=== PATIENT | male | born 1945 | race Two or more races ===

== ENCOUNTER 2017-06-27 06:34 | Day surgery (SDC) | payer MEDICARE, OTHER ==
[2017-06-27] MEDS: SOD CHLORIDE 0.45% 1,000 ML IV (07:00)
[2017-06-27 07:50] LABS: ADD MAN DIFF? NO
[2017-06-27 07:54] LABS: BASOPHILS % 0.5 % (0.0-2.0); EOSINOPHILS # 0.5 10^3/ul (0.0-0.5); EOSINOPHILS % 8.1 % (0.0-7.0); HEMATOCRIT 40.7 % (42.0-52.0); HEMOGLOBIN 13.6 g/dl (14.0-18.0); LYMPHOCYTES # 1.7 10^3/ul (0.8-2.9); LYMPHOCYTES % 26.9 % (15.0-51.0); MEAN CORPUSCULAR HEMOGLOBIN 29.8 pg (29.0-33.0); MEAN CORPUSCULAR HGB CONC 33.4 g/dl (32.0-37.0); MEAN CORPUSCULAR VOLUME 89.3 fl (82.0-101.0); MONOCYTE # 0.4 10^3/ul (0.3-0.9); MONOCYTES % 5.8 % (0.0-11.0); NEUTROPHIL # 3.6 10^3/ul (1.6-7.5); NEUTROPHILS % 58.4 % (39.0-77.0); PLATELET COUNT 136 10^3/UL (140-415); RED BLOOD COUNT 4.56 10^6/ul (4.70-6.10); RED CELL DISTRIBUTION WIDTH 12.7 % (11.5-14.5)
[2017-06-27 07:54] LABS: WHITE BLOOD COUNT 6.2 10^3/ul (4.8-10.8)
[2017-06-27 08:09] LABS: ALANINE AMINOTRANSFERASE 32 IU/L (13-69); ALBUMIN 4.3 g/dl (3.3-4.9); ALBUMIN/GLOBULIN RATIO 1.53; ALKALINE PHOSPHATASE 57 IU/L (42-121); ANION GAP 15 (8-16); ASPARTATE AMINO TRANSFERASE 28 IU/L (15-46); BILIRUBIN,INDIRECT 0.6 mg/dl (0-1.1); BILIRUBIN,TOTAL 0.6 mg/dl (0.2-1.3); CARBON DIOXIDE 25 mmol/L (21-31); CHLORIDE 107 mmol/L (97-110); CHOLESTEROL 261 mg/dl (100-200); GLUCOSE 142 mg/dl (70-220); HDL CHOLESTEROL 29 mg/dl (31-75); LDL CHOLESTEROL,CALCULATED 194 mg/dl; TOTAL PROTEIN 7.1 g/dl (6.1-8.1); TRIGLYCERIDES 189 mg/dl (0-149)
[2017-06-27 08:13] LABS: INR 0.96; PROTIME 12.9 Sec (11.9-14.9)
[2017-06-27 08:14] LABS: BLOOD UREA NITROGEN 21 mg/dl (7-20); PARTIAL THROMBOPLASTIN TIME 31.2 Sec (25.0-35.0); POTASSIUM 4.4 mmol/L (3.5-5.1); SODIUM 143 mmol/L (135-144)
[2017-06-27 08:15] LABS: CALCIUM 10.2 mg/dl (8.4-10.2); CREATININE 1.32 mg/dl (0.61-1.24)
[2017-06-27] MEDS ORDERED: IODIXANOL LOCM 100 ML BTL (08:18)
[2017-06-27] MEDS ORDERED: MIDAZOLAM 1 MG/ML 2 ML INJ (08:18)
[2017-06-27] MEDS ORDERED: HEPARIN 1000 UNITS/ML 10 ML INJ (08:18)
[2017-06-27] MEDS ORDERED: FENTAnyl 50 MCG/ML VIAL (08:18)
[2017-06-27] MEDS ORDERED: LIDOCAINE 1% (MDV) 20 ML INJ (08:18)
[2017-06-27] MEDS ORDERED: VERAPAMIL 5 MG INJ ×2 (08:18→09:07)
[2017-06-27] MEDS ORDERED: NITROGLYCERIN (IC) 100 MCG/ML INJ ×2 (08:19→09:43)
[2017-06-27] MEDS ORDERED: ASPIRIN 325 MG TAB (10:22)
[2017-06-27] MEDS ORDERED: CLOPIDOGREL 300 MG TAB (10:22)
[2017-06-27] MEDS: SOD CHLORIDE 0.9% 1,000 ML IV ×2 (10:40→21:24)
[2017-06-27] MEDS ORDERED: morphine 2 MG INJ IV (11:00)
[2017-06-27] MEDS ORDERED: ONDANSETRON 4 MG INJ IV (11:00)
[2017-06-27] MEDS ORDERED: AL HYDROX/MG HYDROX/SIMETH 30 ML CUP PO (11:00)
[2017-06-27] MEDS ORDERED: ACETAMINOPHEN 325 MG TAB PO (11:00)
[2017-06-27] MEDS ORDERED: DIAZEPAM 2 MG TAB PO (11:00)
[2017-06-27] MEDS: DIAZEPAM 5 MG TAB PO (11:40)
[2017-06-27] MEDS: DIPHENHYDRAMINE 50 MG CAP PO (11:40)
[2017-06-27] MEDS: FAMOTIDINE 20 MG TAB PO (11:40)
[2017-06-27] MEDS ORDERED: NITROGLYCERIN (SL) 0.4 MG TAB SL (21:30)
[2017-06-27] MEDS: OXYCODONE/ACETAMINOPHEN (5/325) TAB PO (21:54)
[2017-06-28 02:16] LABS: SODIUM,URINE RANDOM 163 mmol/L (30-90)
[2017-06-28 02:19] LABS: CREATININE,URINE RANDOM 52.76 mg/dl (20-370); PROTEIN/CREAT RATIO 0.13 RATIO
[2017-06-28 05:35] LABS: ADD MAN DIFF? NO
[2017-06-28 06:01] LABS: WHITE BLOOD COUNT 5.9 10^3/ul (4.8-10.8)
[2017-06-28 06:01] LABS: BASOPHILS % 0.5 % (0.0-2.0); EOSINOPHILS # 0.6 10^3/ul (0.0-0.5); EOSINOPHILS % 9.9 % (0.0-7.0); HEMATOCRIT 38.4 % (42.0-52.0); HEMOGLOBIN 13.2 g/dl (14.0-18.0); LYMPHOCYTES # 1.3 10^3/ul (0.8-2.9); LYMPHOCYTES % 21.8 % (15.0-51.0); MEAN CORPUSCULAR HEMOGLOBIN 30.3 pg (29.0-33.0); MEAN CORPUSCULAR HGB CONC 34.4 g/dl (32.0-37.0); MEAN CORPUSCULAR VOLUME 88.3 fl (82.0-101.0); MEAN PLATELET VOLUME 8.7 fl (7.4-10.4); MONOCYTE # 0.5 10^3/ul (0.3-0.9); MONOCYTES % 7.6 % (0.0-11.0); NEUTROPHIL # 3.6 10^3/ul (1.6-7.5); NEUTROPHILS % 59.9 % (39.0-77.0); PLATELET COUNT 121 10^3/UL (140-415); RED BLOOD COUNT 4.35 10^6/ul (4.70-6.10); RED CELL DISTRIBUTION WIDTH 12.8 % (11.5-14.5)
[2017-06-28 06:17] LABS: CHOL/HDL RATIO 10.5 RATIO; CREATINE KINASE 169 IU/L (23-200); HDL CHOLESTEROL 24 mg/dl (31-75); LDL CHOLESTEROL,CALCULATED 191 mg/dl; TRIGLYCERIDES 196 mg/dl (0-149)
[2017-06-28 06:17] LABS: CHOLESTEROL 254 mg/dl (100-200)
[2017-06-28 06:28] LABS: CK INDEX 2.6
[2017-06-28 06:29] LABS: CK-MB 4.42 ng/ml (0.0-2.4)
[2017-06-28 06:31] LABS: TROPONIN-I 0.121 ng/ml (0.00-0.12)
[2017-06-28 06:33] LABS: ALANINE AMINOTRANSFERASE 36 IU/L (13-69); ALBUMIN 3.6 g/dl (3.3-4.9); ALBUMIN/GLOBULIN RATIO 1.56; ALKALINE PHOSPHATASE 54 IU/L (42-121); ANION GAP 15 (8-16); ASPARTATE AMINO TRANSFERASE 23 IU/L (15-46); BILIRUBIN,INDIRECT 0.7 mg/dl (0-1.1); BILIRUBIN,TOTAL 0.7 mg/dl (0.2-1.3); BLOOD UREA NITROGEN 18 mg/dl (7-20); CALCIUM 9.8 mg/dl (8.4-10.2); CARBON DIOXIDE 25 mmol/L (21-31); CHLORIDE 104 mmol/L (97-110); CREATININE 1.21 mg/dl (0.61-1.24); GLUCOSE 124 mg/dl (70-220); POTASSIUM 4.1 mmol/L (3.5-5.1); SODIUM 140 mmol/L (135-144); TOTAL PROTEIN 5.9 g/dl (6.1-8.1)
[2017-06-28] MEDS: ASPIRIN (EC) 81 MG TAB PO (08:24)
[2017-06-28] MEDS: CLOPIDOGREL 75 MG TAB PO (08:24)
[2017-06-28] MEDS: ISOSORBIDE MONONITRATE(SR)60 MG TAB PO (08:25)
[2017-06-28] MEDS: DILTIAZEM (CD) 180 MG CAP PO (08:26)
[2017-06-28] MEDS ORDERED: RANITIDINE 150 MG TAB PO (21:00)
== END 2017-06-28 14:55 | disposition home or self-care (01) ==
LOC: SDS 06:34 → ICU 10:55
DX: I25.10 Atherosclerotic heart disease of native coronary artery without angina pectoris (principal); E11.9 Type 2 diabetes mellitus without complications; E78.5 Hyperlipidemia, unspecified; I48.91 Unspecified atrial fibrillation; R94.31 Abnormal electrocardiogram [ECG] [EKG]; I12.9 Hypertensive chronic kidney disease with stage 1 through stage 4 chronic kidney disease, or unspecified chronic kidney disease; N18.9 Chronic kidney disease, unspecified
CPT/HCPCS: 71045; 80053; 80061; 81003; 82550; 82553; 82570; 82962; 84300; 84484; 85025; 85610; 85730; 93005; 93458

== ENCOUNTER → 2018-09-10 | Outpatient (CLI) | payer MEDICARE, OTHER ==
[2018-09-10 15:56] LABS: BLOOD UREA NITROGEN 30 mg/dl (7-20)
[2018-09-10 15:56] LABS: CREATININE 1.29 mg/dl (0.61-1.24)
== END | disposition home or self-care (01) ==
LOC: LAB 15:04
DX: I72.9 Aneurysm of unspecified site (principal)
CPT/HCPCS: 82565; 84520

== ENCOUNTER → 2018-09-20 | Outpatient (CLI) | payer MEDICARE, OTHER ==
[2018-09-20] MEDS: SOD CHLORIDE 0.9% 100 ML (09:47)
[2018-09-20] MEDS: IODIXANOL LOCM 100 ML BTL (09:47)
== END | disposition home or self-care (01) ==
LOC: C/S 09:01
DX: I72.9 Aneurysm of unspecified site (principal)
CPT/HCPCS: 71260

== ENCOUNTER 2019-01-24 01:50 | Inpatient (IN) | payer MEDICARE, OTHER ==
[2019-01-24] MEDS: DILTIAZEM 25 MG INJ IV ×2 (02:09→10:31)
[2019-01-24 02:15] LABS: ADD MAN DIFF? NO
[2019-01-24 02:22] LABS: ANION GAP 11 (5-13); BASOPHILS % 0.5 % (0.0-2.0); BLOOD UREA NITROGEN 23 mg/dl (7-20); CALCIUM 10.3 mg/dl (8.4-10.2); CARBON DIOXIDE 26 mmol/L (21-31); CHLORIDE 104 mmol/L (97-110); CREATININE 1.82 mg/dl (0.61-1.24); EOSINOPHILS # 0.1 10^3/ul (0.0-0.5); GLUCOSE 168 mg/dl (70-220); HEMATOCRIT 45.7 % (42.0-52.0); HEMOGLOBIN 15.1 g/dl (14.0-18.0); LYMPHOCYTES # 2.1 10^3/ul (0.8-2.9); LYMPHOCYTES % 26.7 % (15.0-51.0); MEAN CORPUSCULAR HEMOGLOBIN 29.7 pg (29.0-33.0); MONOCYTE # 0.6 10^3/ul (0.3-0.9); MONOCYTES % 7.5 % (0.0-11.0); NEUTROPHILS % 63.8 % (39.0-77.0); PLATELET COUNT 126 10^3/UL (140-415); POTASSIUM 3.4 mmol/L (3.5-5.1); RED BLOOD COUNT 5.08 10^6/ul (4.70-6.10); RED CELL DISTRIBUTION WIDTH 13.1 % (11.5-14.5); SODIUM 141 mmol/L (135-144)
[2019-01-24 02:22] LABS: WHITE BLOOD COUNT 7.9 10^3/ul (4.8-10.8)
[2019-01-24 02:34] LABS: TROPONIN-I 0.027 ng/ml (0.000-0.120)
[2019-01-24 02:36] LABS: INR 1.41; PROTIME 17.4 Sec (11.9-14.9); PT RATIO 1.4
[2019-01-24 02:37] LABS: PARTIAL THROMBOPLASTIN TIME 28.8 Sec (23.0-35.0)
[2019-01-24] MEDS: SOD CHLORIDE 0.9% 500 ML IV (03:02)
[2019-01-24] MEDS ORDERED: ACETAMINOPHEN 325 MG TAB PO (04:00)
[2019-01-24] MEDS ORDERED: ONDANSETRON 4 MG INJ IV (04:00)
[2019-01-24 07:21] LABS: CREATINE KINASE 301 IU/L (23-200)
[2019-01-24 07:27] LABS: CK INDEX 3.3; TROPONIN-I 0.057 ng/ml (0.000-0.120)
[2019-01-24 07:32] LABS: CK-MB 9.98 ng/ml (0.0-2.4)
[2019-01-24] MEDS: morphine 2 MG INJ IV ×2 (07:48→21:29)
[2019-01-24] MEDS ORDERED: NITROGLYCERIN (SL) 0.4 MG TAB SL (08:00)
[2019-01-24 08:54] LABS: TROPONIN-I 0.062 ng/ml (0.000-0.120)
[2019-01-24] MEDS: DILTIAZEM 60 MG TAB PO ×2 (08:56→20:31)
[2019-01-24] MEDS: ENOXAPARIN 100 MG/ML SYG SC (09:00)
[2019-01-24] MEDS: ASPIRIN 81 MG TAB PO (09:00)
[2019-01-24] MEDS: POTASSIUM CHLORIDE (SR) 20 MEQ TAB PO (09:53)
[2019-01-24] MEDS ORDERED: GLUCOSE GEL 15 GRAM TUBE PO ×2 (10:30)
[2019-01-24] MEDS ORDERED: DEXTROSE 50% 50 ML SYRINGE IV ×2 (10:30)
[2019-01-24] MEDS ORDERED: GLUCOSE GEL 15 GRAM TUBE BUCCAL (10:30)
[2019-01-24] MEDS ORDERED: GLUCAGON 1 MG INJ IM (10:30)
[2019-01-24] MEDS: DIGOXIN 500 MCG INJ IV (10:33)
[2019-01-24] MEDS: POTASSIUM CHLORIDE 20 MEQ POWDER FOR ORAL SOLN PO (10:40)
[2019-01-24] MEDS: CLOPIDOGREL 75 MG TAB PO (11:16)
[2019-01-24] MEDS: ISOSORBIDE MONONITRATE(SR)60 MG TAB PO (11:17)
[2019-01-24 11:41] LABS: ADD UMIC NO; UR ASCORBIC ACID NEGATIVE (NEGATIVE); UR BILIRUBIN (Dip) NEGATIVE (NEGATIVE); UR BLOOD (Dip) NEGATIVE (NEGATIVE); UR CLARITY CLEAR (CLEAR); UR COLOR YELLOW (YELLOW); UR GLUCOSE (Dip) NEGATIVE (NEGATIVE); UR KETONES (Dip) NEGATIVE (NEGATIVE); UR LEUKOCYTE ESTERASE (Dip) NEGATIVE Leu/ul (NEGATIVE); UR NITRITE (Dip) NEGATIVE (NEGATIVE); UR SPECIFIC GRAVITY (Dip) 1.018 (1.003-1.030); UR TOTAL PROTEIN (Dip) NEGATIVE (NEGATIVE); UR UROBILINOGEN (Dip) NEGATIVE (NEGATIVE)
[2019-01-24] MEDS: INSULIN ASPART [NOVOLOG] 3 ML PEN SC ×3 (12:17→20:41)
[2019-01-24 15:39] LABS: TROPONIN-I 0.059 ng/ml (0.000-0.120)
[2019-01-24] MEDS: ATORVASTATIN 40 MG TAB PO (20:31)
[2019-01-24] MEDS: ENOXAPARIN 80 MG/0.8 ML SYG SC (20:36)
[2019-01-24 21:08] LABS: CREATINE KINASE 227 IU/L (23-200)
[2019-01-24 21:20] LABS: CK INDEX 3.3; TROPONIN-I 0.056 ng/ml (0.000-0.120)
[2019-01-24 21:21] LABS: CK-MB 7.53 ng/ml (0.0-2.4)
[2019-01-24] MEDS: ZOLPIDEM 5 MG TAB PO (22:13)
[2019-01-25] MEDS: SOD CHLORIDE 0.9% 500 ML IV (01:11)
[2019-01-25] MEDS: PANTOPRAZOLE (EC) 40 MG TAB PO (05:37)
[2019-01-25] MEDS: INSULIN ASPART [NOVOLOG] 3 ML PEN SC ×4 (07:54→20:09)
[2019-01-25] MEDS: ENOXAPARIN 80 MG/0.8 ML SYG SC ×2 (08:23→20:33)
[2019-01-25] MEDS: DILTIAZEM 60 MG TAB PO ×2 (08:27→20:07)
[2019-01-25] MEDS: CLOPIDOGREL 75 MG TAB PO (08:28)
[2019-01-25] MEDS: ISOSORBIDE MONONITRATE(SR)60 MG TAB PO (08:28)
[2019-01-25] MEDS: PREGABALIN 75 MG CAP PO (08:28)
[2019-01-25] MEDS: TAMSULOSIN (SR) 0.4 MG CAP PO (08:29)
[2019-01-25] MEDS: LINAGLIPTIN 5 MG TABLET PO (08:29)
[2019-01-25] MEDS: glyBURIDE 5 MG TAB PO (09:19)
[2019-01-25 10:29] LABS: ADD MAN DIFF? NO
[2019-01-25] MEDS ORDERED: BISACODYL 10 MG SUPP PR (10:30)
[2019-01-25 10:37] LABS: WHITE BLOOD COUNT 6.1 10^3/ul (4.8-10.8)
[2019-01-25 10:37] LABS: BASOPHILS % 0.5 % (0.0-2.0); EOSINOPHILS # 0.1 10^3/ul (0.0-0.5); HEMATOCRIT 45.4 % (42.0-52.0); LYMPHOCYTES # 1.5 10^3/ul (0.8-2.9); LYMPHOCYTES % 25.3 % (15.0-51.0); MEAN CORPUSCULAR HEMOGLOBIN 29.4 pg (29.0-33.0); MEAN CORPUSCULAR VOLUME 88.8 fl (82.0-101.0); MEAN PLATELET VOLUME 9.6 fl (7.4-10.4); MONOCYTE # 0.4 10^3/ul (0.3-0.9); MONOCYTES % 5.9 % (0.0-11.0); NEUTROPHIL # 4.1 10^3/ul (1.6-7.5); NEUTROPHILS % 66.8 % (39.0-77.0); PLATELET COUNT 122 10^3/UL (140-415); RED BLOOD COUNT 5.11 10^6/ul (4.70-6.10); RED CELL DISTRIBUTION WIDTH 13.2 % (11.5-14.5)
[2019-01-25 10:47] LABS: HEMOGLOBIN A1C 6.5 % (0-5.9)
[2019-01-25 10:54] LABS: IRON 98 ug/dl (35-150)
[2019-01-25 11:00] LABS: ANION GAP 8 (5-13); BLOOD UREA NITROGEN 20 mg/dl (7-20); CALCIUM 9.5 mg/dl (8.4-10.2); CARBON DIOXIDE 24 mmol/L (21-31); CHLORIDE 104 mmol/L (97-110); CREATININE 1.46 mg/dl (0.61-1.24); GLUCOSE 182 mg/dl (70-220); SODIUM 136 mmol/L (135-144); URIC ACID 8.4 mg/dl (3.1-7.9)
[2019-01-25 11:03] LABS: % IRON SATURATION 36 % SAT (22-52); TOTAL IRON BINDING CAPACITY 269 ug/dl (241-421)
[2019-01-25] MEDS: SENNA TAB PO (11:10)
[2019-01-25] MEDS ORDERED: morphine 2 MG INJ IV (11:30)
[2019-01-25] MEDS: ATORVASTATIN 40 MG TAB PO (20:06)
[2019-01-25] MEDS: DOCUSATE SODIUM 100 MG CAP PO (20:53)
[2019-01-26] MEDS: PANTOPRAZOLE (EC) 40 MG TAB PO (05:45)
[2019-01-26] MEDS: INSULIN ASPART [NOVOLOG] 3 ML PEN SC ×4 (07:55→20:45)
[2019-01-26] MEDS: DOCUSATE SODIUM 100 MG CAP PO ×2 (08:05→20:43)
[2019-01-26] MEDS: CLOPIDOGREL 75 MG TAB PO (08:05)
[2019-01-26] MEDS: TAMSULOSIN (SR) 0.4 MG CAP PO (08:05)
[2019-01-26] MEDS: glyBURIDE 5 MG TAB PO (08:05)
[2019-01-26] MEDS: PREGABALIN 75 MG CAP PO (08:06)
[2019-01-26] MEDS: LINAGLIPTIN 5 MG TABLET PO (08:06)
[2019-01-26] MEDS: ISOSORBIDE MONONITRATE(SR)60 MG TAB PO (08:07)
[2019-01-26] MEDS: DILTIAZEM 60 MG TAB PO ×2 (08:07→20:42)
[2019-01-26] MEDS: ENOXAPARIN 80 MG/0.8 ML SYG SC ×2 (08:10→20:45)
[2019-01-26 10:43] LABS: ADD MAN DIFF? NO
[2019-01-26 10:45] LABS: WHITE BLOOD COUNT 6.7 10^3/ul (4.8-10.8)
[2019-01-26 10:45] LABS: BASOPHILS % 0.3 % (0.0-2.0); EOSINOPHILS % 0.6 % (0.0-7.0); HEMATOCRIT 44.7 % (42.0-52.0); HEMOGLOBIN 14.7 g/dl (14.0-18.0); LYMPHOCYTES # 1.5 10^3/ul (0.8-2.9); LYMPHOCYTES % 22.7 % (15.0-51.0); MEAN CORPUSCULAR HEMOGLOBIN 29.5 pg (29.0-33.0); MEAN CORPUSCULAR HGB CONC 32.9 g/dl (32.0-37.0); MEAN CORPUSCULAR VOLUME 89.8 fl (82.0-101.0); MEAN PLATELET VOLUME 9.5 fl (7.4-10.4); MONOCYTE # 0.4 10^3/ul (0.3-0.9); MONOCYTES % 5.7 % (0.0-11.0); NEUTROPHIL # 4.7 10^3/ul (1.6-7.5); NEUTROPHILS % 70.6 % (39.0-77.0); POSITIVE DIFF @See below; RED BLOOD COUNT 4.98 10^6/ul (4.70-6.10); RED CELL DISTRIBUTION WIDTH 13.1 % (11.5-14.5)
[2019-01-26 10:54] LABS: PLATELET COUNT 119 10^3/UL (140-415)
[2019-01-26 11:04] LABS: ANION GAP 8 (5-13); BLOOD UREA NITROGEN 20 mg/dl (7-20); CALCIUM 9.6 mg/dl (8.4-10.2); CARBON DIOXIDE 24 mmol/L (21-31); CHLORIDE 104 mmol/L (97-110); CREATININE 1.48 mg/dl (0.61-1.24); GLUCOSE 175 mg/dl (70-220); SODIUM 136 mmol/L (135-144)
[2019-01-26] MEDS: ATORVASTATIN 40 MG TAB PO (20:42)
[2019-01-27] MEDS: PANTOPRAZOLE (EC) 40 MG TAB PO (05:53)
[2019-01-27 06:42] LABS: ADD MAN DIFF? NO
[2019-01-27 06:51] LABS: ABNORMAL IP MESSAGE 1; BASOPHILS % 0.4 % (0.0-2.0); EOSINOPHILS # 0.1 10^3/ul (0.0-0.5); EOSINOPHILS % 1.4 % (0.0-7.0); HEMATOCRIT 41.6 % (42.0-52.0); HEMOGLOBIN 13.7 g/dl (14.0-18.0); LYMPHOCYTES # 1.4 10^3/ul (0.8-2.9); LYMPHOCYTES % 26.9 % (15.0-51.0); MEAN CORPUSCULAR HEMOGLOBIN 29.5 pg (29.0-33.0); MEAN CORPUSCULAR HGB CONC 32.9 g/dl (32.0-37.0); MEAN CORPUSCULAR VOLUME 89.7 fl (82.0-101.0); MEAN PLATELET VOLUME 9.4 fl (7.4-10.4); MONOCYTE # 0.4 10^3/ul (0.3-0.9); MONOCYTES % 8.3 % (0.0-11.0); NEUTROPHIL # 3.2 10^3/ul (1.6-7.5); NEUTROPHILS % 62.6 % (39.0-77.0); PLATELET COUNT 94 10^3/UL (140-415); POSITIVE DIFF @See below; RED BLOOD COUNT 4.64 10^6/ul (4.70-6.10); RED CELL DISTRIBUTION WIDTH 13.2 % (11.5-14.5)
[2019-01-27 06:51] LABS: WHITE BLOOD COUNT 5.1 10^3/ul (4.8-10.8)
[2019-01-27 07:22] LABS: ANION GAP 8 (5-13); BLOOD UREA NITROGEN 17 mg/dl (7-20); CALCIUM 9.3 mg/dl (8.4-10.2); CARBON DIOXIDE 27 mmol/L (21-31); CHLORIDE 104 mmol/L (97-110); CREATININE 1.37 mg/dl (0.61-1.24); GLUCOSE 119 mg/dl (70-220); POTASSIUM 3.6 mmol/L (3.5-5.1); SODIUM 139 mmol/L (135-144)
[2019-01-27] MEDS: INSULIN ASPART [NOVOLOG] 3 ML PEN SC ×4 (07:55→20:17)
[2019-01-27] MEDS: TAMSULOSIN (SR) 0.4 MG CAP PO (08:33)
[2019-01-27] MEDS: DOCUSATE SODIUM 100 MG CAP PO ×2 (08:34→20:17)
[2019-01-27] MEDS: PREGABALIN 75 MG CAP PO (08:34)
[2019-01-27] MEDS: LINAGLIPTIN 5 MG TABLET PO (08:34)
[2019-01-27] MEDS: ISOSORBIDE MONONITRATE(SR)60 MG TAB PO (08:34)
[2019-01-27] MEDS: CLOPIDOGREL 75 MG TAB PO (08:34)
[2019-01-27] MEDS: glyBURIDE 5 MG TAB PO (08:34)
[2019-01-27] MEDS: ENOXAPARIN 80 MG/0.8 ML SYG SC ×2 (08:35→20:42)
[2019-01-27] MEDS: DILTIAZEM 60 MG TAB PO (08:35)
[2019-01-27] MEDS ORDERED: METOPROLOL 5 MG INJ IV (12:00)
[2019-01-27] MEDS: ATORVASTATIN 40 MG TAB PO (20:17)
[2019-01-27] MEDS: DILTIAZEM (CD) 180 MG CAP PO (20:18)
[2019-01-27] MEDS: ZOLPIDEM 5 MG TAB PO (22:50)
[2019-01-28] MEDS ORDERED: AL HYDROX/MG HYDROX/SIMETH 30 ML CUP PO (02:00)
[2019-01-28] MEDS: PANTOPRAZOLE (EC) 40 MG TAB PO (05:52)
[2019-01-28 06:34] LABS: ADD MAN DIFF? NO
[2019-01-28 06:58] LABS: WHITE BLOOD COUNT 5.3 10^3/ul (4.8-10.8)
[2019-01-28 06:58] LABS: ABNORMAL IP MESSAGE 1; BASOPHILS % 0.4 % (0.0-2.0); EOSINOPHILS # 0.1 10^3/ul (0.0-0.5); EOSINOPHILS % 1.5 % (0.0-7.0); HEMATOCRIT 39.6 % (42.0-52.0); HEMOGLOBIN 12.9 g/dl (14.0-18.0); LYMPHOCYTES # 1.8 10^3/ul (0.8-2.9); LYMPHOCYTES % 33.1 % (15.0-51.0); MEAN CORPUSCULAR HEMOGLOBIN 29.4 pg (29.0-33.0); MEAN CORPUSCULAR HGB CONC 32.6 g/dl (32.0-37.0); MEAN CORPUSCULAR VOLUME 90.2 fl (82.0-101.0); MEAN PLATELET VOLUME 9.5 fl (7.4-10.4); MONOCYTE # 0.4 10^3/ul (0.3-0.9); MONOCYTES % 7.3 % (0.0-11.0); NEUTROPHILS % 57.3 % (39.0-77.0); PLATELET COUNT 87 10^3/UL (140-415); POSITIVE DIFF @See below; RED BLOOD COUNT 4.39 10^6/ul (4.70-6.10); RED CELL DISTRIBUTION WIDTH 13.4 % (11.5-14.5)
[2019-01-28] MEDS: INSULIN ASPART [NOVOLOG] 3 ML PEN SC ×4 (07:51→20:36)
[2019-01-28] MEDS: LINAGLIPTIN 5 MG TABLET PO (08:08)
[2019-01-28] MEDS: TAMSULOSIN (SR) 0.4 MG CAP PO (08:09)
[2019-01-28] MEDS: glyBURIDE 5 MG TAB PO (08:09)
[2019-01-28] MEDS: ISOSORBIDE MONONITRATE(SR)60 MG TAB PO (08:09)
[2019-01-28] MEDS: PREGABALIN 75 MG CAP PO (08:09)
[2019-01-28] MEDS: CLOPIDOGREL 75 MG TAB PO (08:10)
[2019-01-28] MEDS: DILTIAZEM (CD) 180 MG CAP PO ×2 (08:10→20:37)
[2019-01-28] MEDS: DOCUSATE SODIUM 100 MG CAP PO ×2 (08:10→20:36)
[2019-01-28] MEDS: ENOXAPARIN 80 MG/0.8 ML SYG SC (08:15)
[2019-01-28] MEDS: APIXABAN 5 MG TABLET PO ×2 (10:32→20:36)
[2019-01-28] MEDS: ATORVASTATIN 40 MG TAB PO (20:36)
[2019-01-28] MEDS ORDERED: APIXABAN 5 MG TABLET PO (21:00)
[2019-01-29] MEDS: PANTOPRAZOLE (EC) 40 MG TAB PO (05:58)
[2019-01-29 06:47] LABS: ADD MAN DIFF? NO
[2019-01-29 06:50] LABS: ABNORMAL IP MESSAGE 1; BASOPHILS % 0.6 % (0.0-2.0); EOSINOPHILS # 0.1 10^3/ul (0.0-0.5); EOSINOPHILS % 1.7 % (0.0-7.0); HEMATOCRIT 40.7 % (42.0-52.0); HEMOGLOBIN 13.1 g/dl (14.0-18.0); LYMPHOCYTES # 1.7 10^3/ul (0.8-2.9); LYMPHOCYTES % 32.2 % (15.0-51.0); MEAN CORPUSCULAR HGB CONC 32.2 g/dl (32.0-37.0); MEAN PLATELET VOLUME 9.5 fl (7.4-10.4); MONOCYTE # 0.4 10^3/ul (0.3-0.9); MONOCYTES % 7.4 % (0.0-11.0); NEUTROPHILS % 57.5 % (39.0-77.0); PLATELET COUNT 95 10^3/UL (140-415); POSITIVE DIFF @See below; RED BLOOD COUNT 4.52 10^6/ul (4.70-6.10); RED CELL DISTRIBUTION WIDTH 13.4 % (11.5-14.5)
[2019-01-29 06:50] LABS: WHITE BLOOD COUNT 5.2 10^3/ul (4.8-10.8)
[2019-01-29] MEDS: INSULIN ASPART [NOVOLOG] 3 ML PEN SC ×4 (07:55→21:00)
[2019-01-29] MEDS: DILTIAZEM (CD) 180 MG CAP PO (09:00)
[2019-01-29] MEDS: glyBURIDE 5 MG TAB PO (09:50)
[2019-01-29] MEDS: APIXABAN 5 MG TABLET PO ×2 (09:50→21:20)
[2019-01-29] MEDS: TAMSULOSIN (SR) 0.4 MG CAP PO (09:50)
[2019-01-29] MEDS: DOCUSATE SODIUM 100 MG CAP PO ×2 (09:50→21:19)
[2019-01-29] MEDS: CLOPIDOGREL 75 MG TAB PO (09:51)
[2019-01-29] MEDS: PREGABALIN 75 MG CAP PO (09:55)
[2019-01-29] MEDS: LINAGLIPTIN 5 MG TABLET PO (09:56)
[2019-01-29] MEDS: SOD CHLORIDE 0.9% 500 ML IV (14:28)
[2019-01-29] MEDS: DIGOXIN 500 MCG INJ IV (14:54)
[2019-01-29] MEDS: AMIODARONE 150MG/D5W BOLUS 100 ML IV (16:23)
[2019-01-29] MEDS: AMIODARONE 900 MG in DEXTROSE 5% 482 ML IV (16:43)
[2019-01-29] MEDS: ATORVASTATIN 40 MG TAB PO (21:18)
[2019-01-29] MEDS: DILTIAZEM (CD) 120 MG CAP PO (21:19)
[2019-01-30] MEDS: HYDROCODONE/APAP (5/325) TAB PO (00:42)
[2019-01-30] MEDS: PANTOPRAZOLE (EC) 40 MG TAB PO (05:58)
[2019-01-30] MEDS: INSULIN ASPART [NOVOLOG] 3 ML PEN SC ×2 (07:55→11:50)
[2019-01-30 09:13] LABS: ADD MAN DIFF? NO
[2019-01-30 09:26] LABS: WHITE BLOOD COUNT 5.1 10^3/ul (4.8-10.8)
[2019-01-30 09:26] LABS: ABNORMAL IP MESSAGE 1; BASOPHILS % 0.4 % (0.0-2.0); EOSINOPHILS # 0.1 10^3/ul (0.0-0.5); EOSINOPHILS % 1.4 % (0.0-7.0); HEMATOCRIT 40.3 % (42.0-52.0); HEMOGLOBIN 12.9 g/dl (14.0-18.0); LYMPHOCYTES # 1.5 10^3/ul (0.8-2.9); LYMPHOCYTES % 30.1 % (15.0-51.0); MEAN CORPUSCULAR VOLUME 90.6 fl (82.0-101.0); MEAN PLATELET VOLUME 9.7 fl (7.4-10.4); MONOCYTE # 0.4 10^3/ul (0.3-0.9); MONOCYTES % 7.7 % (0.0-11.0); NEUTROPHIL # 3.1 10^3/ul (1.6-7.5); PLATELET COUNT 91 10^3/UL (140-415); POSITIVE DIFF @See below; RED BLOOD COUNT 4.45 10^6/ul (4.70-6.10); RED CELL DISTRIBUTION WIDTH 13.4 % (11.5-14.5)
[2019-01-30 09:39] LABS: ANION GAP 4 (5-13); BLOOD UREA NITROGEN 12 mg/dl (7-20); CALCIUM 9.3 mg/dl (8.4-10.2); CARBON DIOXIDE 27 mmol/L (21-31); CHLORIDE 108 mmol/L (97-110); CREATININE 1.34 mg/dl (0.61-1.24); GLUCOSE 101 mg/dl (70-220); SODIUM 139 mmol/L (135-144)
[2019-01-30 09:43] LABS: MAGNESIUM 1.6 mg/dl (1.7-2.5)
[2019-01-30 09:43] LABS: PHOSPHORUS 3.5 mg/dl (2.5-4.9)
[2019-01-30] MEDS: LINAGLIPTIN 5 MG TABLET PO (10:08)
[2019-01-30] MEDS: TAMSULOSIN (SR) 0.4 MG CAP PO (10:08)
[2019-01-30] MEDS: APIXABAN 5 MG TABLET PO (10:08)
[2019-01-30] MEDS: CLOPIDOGREL 75 MG TAB PO (10:09)
[2019-01-30] MEDS: PREGABALIN 75 MG CAP PO (10:09)
[2019-01-30] MEDS: DILTIAZEM (CD) 120 MG CAP PO (10:10)
[2019-01-30] MEDS: DOCUSATE SODIUM 100 MG CAP PO (10:10)
[2019-01-30] MEDS: glyBURIDE 5 MG TAB PO (10:11)
[2019-01-30] MEDS: MAGNESIUM SULFATE 2 GM/50 ML 50 ML IVPB (11:48)
[2019-01-30] MEDS ORDERED: AMIODARONE 200 MG TAB PO (21:00)
== END 2019-01-30 16:27 | disposition home or self-care (01) | DRG 308 ==
LOC: E/R 01:50 → TEL 03:33
DX: I48.91 Unspecified atrial fibrillation (principal); I50.33 Acute on chronic diastolic (congestive) heart failure; N17.9 Acute kidney failure, unspecified; D68.69 Other thrombophilia; I13.0 Hypertensive heart and chronic kidney disease with heart failure and stage 1 through stage 4 chronic kidney disease, or unspecified chronic kidney disease; I20.9 Angina pectoris, unspecified; Z95.5 Presence of coronary angioplasty implant and graft; I12.9 Hypertensive chronic kidney disease with stage 1 through stage 4 chronic kidney disease, or unspecified chronic kidney disease; E11.22 Type 2 diabetes mellitus with diabetic chronic kidney disease; N18.9 Chronic kidney disease, unspecified; Z79.02 Long term (current) use of antithrombotics/antiplatelets; N40.0 Benign prostatic hyperplasia without lower urinary tract symptoms; D69.6 Thrombocytopenia, unspecified; R06.02 Shortness of breath; E66.3 Overweight; Z68.29 Body mass index [BMI] 29.0-29.9, adult; E87.6 Hypokalemia; E11.21 Type 2 diabetes mellitus with diabetic nephropathy; I95.9 Hypotension, unspecified; K76.0 Fatty (change of) liver, not elsewhere classified
CPT/HCPCS: 36415; 71045; 76705; 76775; 80048; 81003; 82550; 82553; 82962; 83036; 83540; 83735; 84100; 84484; 84560; 85025; 85610; 85730; 93005; 93306; 96374; 99285-25; G0378

== ENCOUNTER 2019-01-31 19:32 | Emergency (ER) | payer MEDICARE, OTHER ==
[2019-01-31] MEDS: ACETAMINOPHEN 500 MG TAB PO (20:34)
== END 2019-01-31 22:02 | disposition home or self-care (01) ==
LOC: FTE 19:32
DX: I80.9 Phlebitis and thrombophlebitis of unspecified site (principal); J45.909 Unspecified asthma, uncomplicated; Z79.01 Long term (current) use of anticoagulants
CPT/HCPCS: 93971; 99284-25